=== PATIENT | male | born 1940 | race Hispanic/Latino ===

== ENCOUNTER 2017-12-25 06:12 | Day surgery (SDC) | payer MEDICARE ==
[~2017-12-25] VITALS: Ht 170.2 cm; Wt 72.6 kg
[2017-12-25] VITALS (12 sets, daily range): BP systolic 75–127; BP diastolic 50–75
[~2017-12-25 06:12] MED LIST: CLONIDINE0.1 MG PO; FISH OIL1 CAP PO; LISINOP/HCTZ1 TAB PO; SG ASA LOW81 M1 PO; TERAZOSIN HCL5 MG PO; TURMERIC CURCU500 MG PO; VITAMIN B12 PO
--- NOTE | 2017-12-25 11:33 | NUR ---
PT C/O NAUSEA AND FEELING LIKE HE HAS TO VOMIT AT THIS TIME. MEDICATED W/ 4 MG ZOFRAN IV. WILL CONTINUE TO MONITOR
--- NOTE | 2017-12-25 14:14 | NUR ---
DR. NOBLE CALLED IN REGARDS TO PT. NO ANSWER, MESSAGED LEFT TO VOICEMAIL INFORMING DR. NOBLE TO CALL BUMBOATER BACK WHEN HE IS AVAILABLE
--- NOTE | 2017-12-25 15:05 | NUR ---
PT. INSISTENT ON USING RESTROOM FOR BM. ASSISTED BY STAFF X 2. CARE HOME TO RESTROOM PT. STARTED TO LEAN BACK, CLIENT SERVICE COORDINATOR CAUGHT PT AND ASSISTED PT. TO FLOOR. NOT A FALL. NO INJURY INCURRED. PT RETURNED TO BED BY STAFF X 5. FALL PRECAUTIONS REINFORCED. BED ALARM SET FOR SAFETY. BP 88/54, HR 83. PT STATES "I FEEL FINE NOW. I REALLY WANT TO GO TO THE [facility]." PT. INSTRUCTED TO STAY IN BED FOR SAFETY REASONS. BED KUMAR SUPPLIED. CALL PLACED TO DR. NOBLE BY CHRISTOPHER NOBLE. AWAITING RETURN PHONE CALL.
--- NOTE | 2017-12-25 17:32 | NUR ---
DR. NOBLE CALLED R/T PT'S BLOOD PRESSURE. MESSAGE LEFT.
--- NOTE | 2017-12-25 19:41 | NUR ---
PT IN BED A/O X3, RESPIRATIONS EVEN AND UNLABORED ON RA, USING INCENTIVE SPIROMETER UP TO 1000ML INSPIRED VOLUME. POST OP AQUABLASION 12/25/17, CBI IN PROGRESS, WIDE OPEN WHEN RECEIVED PT, CBI SLOWED DOWN BY THIS WRITTER. URINE COLOR IS ORANGE AND CLEAR WITH SCANT BLOOD TINGED. C/O BURNING PAIN TO PENIS, MORPHINE 3MG IV ADMINISTERED AT THIS TIME. B/P 126/71, HR 58, TEMP 96.9. D5NS INFUSING TO RH AT 125CC/HR. PO FLUIDS IN REACH, CALL LIGHT AT BED SIDE. WILL CONTINUE TO MONITOR.
--- NOTE | 2017-12-25 21:30 | NUR ---
THIS WRITTER CALLED DR. NOBLE UPDATED ON PT'S CONDITION AND OK GIVEN TO REMOVED TRACTION DEVICE. PT TOLERATED WELL, URINE BECAME MORE BLOODY, CBI RUNNING WIDE OPEN TILL IT CLEARED UP, THEN CARLOS SLOWED DOWN, URINE IS BLOOD TINGED.
--- NOTE | 2017-12-25 23:56 | NUR ---
C/O BURNING PAIN TO PENIS, MORPHINE 3MG IV ADMINISTERED AT THIS TIME. CBI IN PROGRESS AT A SLOW DRIP. URINE IS BLOOD TINGED.
[2017-12-26 00:07] VITALS: BP 105/52
--- NOTE | 2017-12-26 04:00 | NUR ---
MORNING LABS DRAWN BY PHLEBOTOMYST, TOLERATED WELL.
[2017-12-26 04:29] VITALS: BP 102/53
[2017-12-26 05:15] LABS: HEMATOCRIT 29.9 % (39.0-50.0); IMMATURE GRANULOCYTES 0.4 % (0.0-5.0); MEAN CELL VOLUME 94.9 fL CALC (80.0-100.0); MEAN CORPUSCULAR HGB 31.7 pG CALC (26.0-32.0); MEAN CORPUSCULAR HGB CONC 33.4 g/L CALC (32.0-36.0); NEUT# 4.99 thou/uL (1.82-7.42); RED BLOOD COUNT 3.15 mill/uL (4.70-6.10); RED CELL DISTRI WIDTH 12.9 % (11.5-15.5)
[2017-12-26 05:34] LABS: ALBUMIN 2.5 g/dL (3.2-5.0); BILIRUBIN, TOTAL 0.5 mg/dL (0.0-1.4); CREATININE 1.6 mg/dL (0.7-1.3); MAGNESIUM 1.7 mg/dL (1.6-2.3); POTASSIUM 4.6 mmol/l (3.5-5.1); TOTAL PROTEIN 4.8 g/dL (6.3-8.2)
[2017-12-26] MEDS ORDERED: GABAPENTIN600 MG PO (05:57)
[2017-12-26] MEDS ORDERED: KEFLEX500 M1 PO (05:57)
[2017-12-26] MEDS ORDERED: VESICARE5 MG PO (05:57)
[2017-12-26] MEDS ORDERED: AZO TABS95 MG PO (05:58)
--- NOTE | 2017-12-26 06:10 | NUR ---
DR. NOBLE IN TO SEE PT, STOPPED CBI, URINE IS BLOODY. DISCUSSED DISCHARGE PLANS AND FOLLOW UP WITH HIM.
--- NOTE | 2017-12-26 07:05 | NUR ---
PT REPORT RECIEVED FROM CHRISTOPHER WADDELL. PT SLEEPING. NO S/S OF DISTRESS. CALL LIGHT IN REACH. WILL CONTINUE TO MONITOR
[2017-12-26 08:30] VITALS: BP 99/64
--- NOTE | 2017-12-26 08:30 | NUR ---
PT ASSESSMENT COMPLETE. A/OX3. SPEECH IS CLEAR. RESP EVEN AND UNLABORED. PT EXHIBITS SLIGHT ANXIETY AT THIS TIME DUE TO CATHETER AND WANTING TO GO HOME. VERBAL DISCUSSION W/ PT. ANXIETY LEVEL DECREASES. LUNG SOUNDS CLEAR. BOWEL SOUNDS ACTIVE X4. STRONG RADIAL AND PEDAL PULSES. #20 RH SL. FLUSHED AND PATENT. SITE APPEARS HEALTHY. SKIN INTACT. MARCH DRAINING FREELY, FRENCH RED URINE. NO CLOTS VISIBLE. PT C/O BURNING SENSATION AT THE PENIS. MEDICATED W/ TWO 200 MG PYRIDIUM PO. MINIMAL BLOOD LEAKING FROM MEATUS. CLEANED, WILL CONTINUE TO MONITOR. PT DENIES ANY FURTHER NEEDS. INCENTIVE SPIROMETER AT BEDSIDE. BSC NEAR BED. SAFETY PRECAUTIONS IN PLACE. CALL LIGHT IN REACH. WILL CONTINUE TO MONITOR.
[2017-12-26 11:40] VITALS: BP 108/65
--- NOTE | 2017-12-26 11:59 | NUR ---
PT UP TO WALK THE HALLS WITH SENIOR COURT OFFICE ASSISTANT. PT TOLERATED WELL. C/O BURNING SENSATION. MARCH DRAINING FRENCH RED URINE FREELY, NO CLOTS VISIBLE. WILL CONTINUE TO MONITOR
--- NOTE | 2017-12-26 12:30 | NUR ---
PT HAS BEEN ASKING WHEN HE IS GOING HOME , INFORMED WAITING ON HOME HEALTH INFORMATION. THEN WILL CHANGE MARCH BAG TO LEG AND ALSO SEND THE LARGE BAG FOR AT NIGHT. INSTRUCTED ON HOW TO CHANGE THE BAG, ALSO TO LET IT EMPTY WHILE IN THE SHOWER. VERBALIZED UNDERSTANDING.
--- NOTE | 2017-12-26 13:20 | NUR ---
D/C INSTRUCTIONS REVIEWED PT, ALSO CATHETER CARE. IV REMOVED. MARCH INTACT. PT DENIES ANY FURTHER QUESTIONS. AMBULATING BY FOOT OUT OF HOSPITAL IN [place] CONDITION W/ FAMILY
--- NOTE | 2017-12-26 13:38 | NUR ---
Discharge instructions given. Patient verbalizes understanding of same. Discharged in stable condition via Ambulatory to Home with family. All belongings sent with pt.
== END 2017-12-26 13:40 | disposition home health service (06) ==
LOC: MS2 06:12 → ORM 06:12 → MS2 10:20 → ORM 12-26 13:40
PROVIDERS: ATTEND Urology
PROC: XV508A4 Destruction of Prostate using Robotic Waterjet Ablation, Via Natural or Artificial Opening Endoscopic, New Technology Group 4 (ICD-10-PCS; principal; 2017-12-25)
DX: N40.1 Benign prostatic hyperplasia with lower urinary tract symptoms (principal); R35.1 Nocturia; R39.15 Urgency of urination; R39.12 Poor urinary stream; R35.0 Frequency of micturition; I10 Essential (primary) hypertension; Z87.440 Personal history of urinary (tract) infections
CPT/HCPCS: 0421T